=== PATIENT | female | born 1995 | race Caucasian/White ===

== ENCOUNTER 2022-06-14 04:00 | Inpatient (IN) | payer OTHER ==
[~2022-06-14] VITALS: Ht 160 cm; Wt 74.8 kg
[2022-06-14] MEDS ORDERED: LR 1,000 ML IV SCH (04:45)
[2022-06-14] MEDS ORDERED: OXYTOCIN/0.9 % SODIUM CHLORIDE 1,000 ML IV SCH ×2 (04:45→15:30)
[2022-06-14] MEDS ORDERED: NALBUPHINE HCL 10 MG/ML AMP IVP PRN (04:45)
[2022-06-14] MEDS ORDERED: TERBUTALINE SULFATE 1 MG/ML VIAL SUBCUT ONE (04:45)
[2022-06-14] MEDS ORDERED: LR 1,000 ML IV ONE (04:45)
[2022-06-14 05:56] LABS: BASOPHILS % (AUTO) 0.2 % (0.0-2.0); EOSINOPHILS % (AUTO) 0.2 % (0.0-4.0); HEMATOCRIT 36.3 % (36-48); HEMOGLOBIN 12.3 g/dL (12.0-16.0); LYMPHOCYTES # (AUTO) 1.8 K/uL (1.0-5.5); LYMPHOCYTES % (AUTO) 19.1 % (20.5-51.5); MEAN CORPUSCULAR HEMOGLOBIN 28 pg (27-31); MEAN CORPUSCULAR HGB CONC 34 % (32-36); MEAN CORPUSCULAR VOLUME 82 fL (79.0-98.0); MONOCYTES # (AUTO) 0.6 K/uL (0.0-1.0); MONOCYTES % (AUTO) 6.7 % (1.7-9.3); NEUTROPHILS # (AUTO) 7.1 K/uL (1.8-7.7); NEUTROPHILS % (AUTO) 73.8 % (40.0-70.0); PLATELET COUNT (AUTO) 319 K/uL (130-430); RED BLOOD CELL COUNT(AUTO) 4.42 MIL/uL (4.2-6.2); RED CELL DISTRIBUTION WIDTH 13.6 % (9.0-15.0); WHITE BLOOD COUNT (AUTO) 9.6 K/uL (4.8-10.8)
[2022-06-14 07:53] VITALS: BP_SYST 98
[2022-06-14] MEDS ORDERED: fentaNYL CITRATE/PF 100 MCG/2 ML AMP ONE (11:09)
[2022-06-14] MEDS ORDERED: ROPIVACAINE HCL/PF 0.2% 0 ML ONE (11:09)
[2022-06-14] MEDS ORDERED: LIDOCAINE PF 1% 30ML(POUR BTL) INJ ONE (12:25)
[2022-06-14] MEDS ORDERED: NALOXONE HCL 0.4 MG/ML AMP (NARCAN) ONE (12:25)
[2022-06-14] MEDS ORDERED: LIGHT MINERAL OIL 10 ML VIAL MC ONE (12:25)
[2022-06-14] MEDS ORDERED: WITCH HAZEL LEAF 1 MED.PAD MED.PAD TP ONE (14:57)
[2022-06-14] MEDS ORDERED: OXYTOCIN/0.9 % SODIUM CHLORIDE 1,000 ML IV ONE (15:30)
[2022-06-14] MEDS ORDERED: WITCH HAZEL LEAF 1 MED.PAD MED.PAD TP PRN (15:30)
[2022-06-14] MEDS ORDERED: DERMOPLAST SPRAY TP PRN (15:30)
[2022-06-14] MEDS ORDERED: METHYLERGONOVINE MALEATE 0.2 MG TABLET PO PRN (15:30)
[2022-06-14] MEDS ORDERED: LANOLIN 7 GM OINT. TP PRN (15:30)
[2022-06-14] MEDS: IBUPROFEN 600 MG TABLET PO SCH (16:17)
[2022-06-14] MEDS ORDERED: SENNOSIDES/DOCUSATE SODIUM 1 TAB TABLET(SENOKOT-S) PO SCH (21:00)
[2022-06-15] MEDS: IBUPROFEN 600 MG TABLET PO SCH ×4 (00:29→17:52)
[2022-06-15 07:41] LABS: HEMATOCRIT 32.3 % (36-48)
[2022-06-15] MEDS ORDERED: DOCUSATE SODIUM 100 MG CAPSULE PO SCH (09:00)
== END 2022-06-15 18:30 | disposition home or self-care (01) | DRG 560 ==
LOC: SPU 04:00
PROVIDERS: ADMIT Obstetrics & Gynecology; ATTEND Obstetrics & Gynecology
PROC: 10E0XZZ Delivery of Products of Conception, External Approach (ICD-10-PCS; principal; 2022-06-14)
DX: O42.92 Full-term premature rupture of membranes, unspecified as to length of time between rupture and onset of labor (principal); Z37.0 Single live birth; D62 Acute posthemorrhagic anemia; Z20.822 Contact with and (suspected) exposure to COVID-19; Z3A.39 39 weeks gestation of pregnancy
CPT/HCPCS: 36415; 81002; 85018; 85025; 86592; 86886; 86900; 86901; J2001; J2310; J2590; J3010